=== PATIENT | female | born 2000 | race Caucasian/White ===

== ENCOUNTER 2024-06-09 06:31 | Outpatient (REF) | payer OTHER, SELFPAY ==
--- NOTE | ~2024-06-09 | US_ITS ---
CLINICAL HISTORY: CHECK IUD US pelvis transabdominal and transvaginal with Doppler Comparison: None Findings: Transabdominal scanning performed for overall anatomy. Transvaginal scanning performed for additional detail. Uterus is 7.4 cm length. IUD in place. Normal myometrium. Endometrium 1.7 mm thickness. Right ovary 3.8 x 2.3 x 2.3 cm. Left ovary 3.4 x 2.4 x 2 cm. Normal color Doppler with arterial/venous spectral tracing of both ovaries. No free fluid. IMPRESSION: IUD in appropriate position. This document has been electronically signed by: Corinne Sharif MD on 06/09/2024 14:22:46
== END 2024-06-09 06:32 | disposition home or self-care (01) ==
LOC: HO.UMASIMG 06:31
PROVIDERS: Visit Provider Registered Nurse
DX: Z30.431 Encounter for routine checking of intrauterine contraceptive device (principal)
CPT/HCPCS: 76830; 76856

== ENCOUNTER → 2024-06-09 13:00 | Outpatient (BNV) | payer OTHER, SELFPAY | PROVIDERS: Visit Provider Nuclear Medicine | DX: Z97.5 Presence of (intrauterine) contraceptive device (principal) | CPT/HCPCS: 76830; 76856 ==